=== PATIENT | male | born 1965 | race African-American/Black ===

== ENCOUNTER 2023-06-04 12:31 | Emergency (ER) | payer OTHER ==
[~2023-06-04] VITALS: Ht 185.4 cm; Wt 87.0 kg
[2023-06-04 12:36] VITALS: O2SAT 99
[2023-06-04 14:01] LABS: HEMATOCRIT. 27.9 % (42.0-52.0); HEMOGLOBIN. 9.4 g/dL (14.0-18.0); MEAN CORPUSCULAR HEMOGLOBIN 28.9 pg (28.0-32.0); MEAN CORPUSCULAR HGB CONC 33.7 g/dL (31.0-37.0); MEAN PLATELET VOLUME 8.7 fl (7.4-10.4); PLATELET 216 x1000/uL (130-400); RED BLOOD CELL COUNT 3.25 mill/uL (4.7-6.1); RED CELL DISTRIBUTION WIDTH 14.5 % (11.6-14.6); WHITE BLOOD COUNT 4.8 x1000/uL (4.5-11.0)
[2023-06-04 14:05] LABS: CHLORIDE 107 mEq/L (98-107); INDEX HEMOLYSI 1 (1-3); INDEX ICTERIC 1 (1-4); INDEX LIPEMIC 1 (1-3); POTASSIUM 4.3 mEq/L (3.5-5.1); SODIUM 140 mEq/L (136-145)
[2023-06-04 14:16] LABS: ALANINE AMINOTRANSFERASE 20 IU/L (13-61); ALBUMIN 3.8 g/dL (3.4-5.0); ASPARTATE AMINOTRANSFERASE 16 IU/L (15-37); BILIRUBIN TOTAL 0.5 mg/dL (0.1-1.0); CARBON DIOXIDE 28 mEq/L (21-32); CREATININE 3.3 mg/dL (0.6-1.3); GLUCOSE 168 mg/dL (70-105); PROTEIN TOTAL 7.6 g/dL (6.0-8.3); TROPONIN I HIGH SENSITIVITY 18 ng/L (<78); UREA NITROGEN BLOOD 47 mg/dL (7-21)
[2023-06-04 14:39] LABS: DIFFERENTIAL COMMENT 1
[2023-06-04 14:43] LABS: PLATELET ESTIMATE NORMAL
[2023-06-04 14:47] LABS: CLARITY URINE CLEAR (CLEAR); COLOR URINE YELLOW (YELLOW); GLUCOSE URINE TRACE (NEGATIVE); KETONES URINE NEGATIVE (NEGATIVE); LEUKOCYTE ESTERASE URINE NEGATIVE (NEGATIVE); NITRITE URINE NEGATIVE (NEGATIVE); OCCULT BLOOD URINE 1+ (NEGATIVE); PROTEIN URINE 3+ (NEGATIVE); SPECIFIC GRAVITY URINE 1.015 (1.005-1.030); UROBILINOGEN URINE 0.2 E.U./dL (0.2-1.0)
[2023-06-04 15:13] LABS: SQUAMOUS EPITHELIAL CELL URINE NONE SEEN /lpf (RARE/1+)
[2023-06-04 15:14] LABS: BACTERIA URINE TRACE; RBC URINE 0-2 /hpf (0-2); WBC URINE 0-2 /hpf (0-2)
[2023-06-04 16:33] VITALS: BP 145/98; PULSE 84; RESP 19; TEMP 98
== END 2023-06-04 16:34 | disposition home or self-care (01) ==
LOC: ER 12:31
DX: I12.9 Hypertensive chronic kidney disease with stage 1 through stage 4 chronic kidney disease, or unspecified chronic kidney disease (principal); N18.9 Chronic kidney disease, unspecified; H53.8 Other visual disturbances
CPT/HCPCS: 36415; 71045; 80053; 81003; 84484; 85025; 93005; 99285

== ENCOUNTER 2023-11-17 02:45 | Emergency (ER) | payer MEDICAID ==
[~2023-11-17] VITALS: Ht 193 cm; Wt 79.0 kg
[~2023-11-17 02:45] MED LIST: AMLO10TA80 MT; AMLO10TA80 PO; ASPI-1406 PO; DOXA-15 PO; FURO40TA5 PO; GLIP10TA10 MT; HYDR50TA39 PO; LISI-186 MT; SITA100T11 MT
[2023-11-17 03:05] VITALS: O2SAT 100
[2023-11-17] MEDS: ONDANSETRON 4MG ODT PO ONE (06:14)
[2023-11-17] MEDS: ACETAMINOPHEN 325MG TABLET PO ONE (06:14)
[2023-11-17 06:18] LABS: BASOPHILS % 1.5 % (0.0-2.0); EOSINOPHILS % 1.3 % (0.0-5.0); HEMATOCRIT. 27.4 % (42.0-52.0); HEMOGLOBIN. 9.4 g/dL (14.0-18.0); LYMPHOCYTES % 19.3 % (20.0-50.0); MEAN CORPUSCULAR HEMOGLOBIN 30.3 pg (28.0-32.0); MEAN CORPUSCULAR HGB CONC 34.3 g/dL (31.0-37.0); MEAN CORPUSCULAR VOLUME 88.3 fL (80.0-94.0); MEAN PLATELET VOLUME 8.3 fl (7.4-10.4); MONOCYTES % 7.5 % (2.0-8.0); NEUTROPHILS % 70.4 % (40.0-76.0); PLATELET 153 x1000/uL (130-400); RED CELL DISTRIBUTION WIDTH 14.7 % (11.6-14.6); WHITE BLOOD COUNT 5.9 x1000/uL (4.5-11.0)
[2023-11-17 06:39] LABS: ALANINE AMINOTRANSFERASE 14 IU/L (10-49); ALBUMIN 3.6 g/dL (3.2-4.8); ASPARTATE AMINOTRANSFERASE 15 IU/L (<34); BILIRUBIN TOTAL 0.7 mg/dL (0.1-1.0); CALCIUM 8.4 mg/dL (8.7-10.4); CARBON DIOXIDE 22 mEq/L (21-32); CHLORIDE 108 mEq/L (98-107); CREATININE 4.6 mg/dL (0.6-1.3); GLUCOSE 131 mg/dL (70-105); POTASSIUM 4.7 mEq/L (3.5-5.1); SODIUM 140 mEq/L (136-145); UREA NITROGEN BLOOD 62 mg/dL (9-23)
[2023-11-17 07:56] LABS: CLARITY URINE CLEAR (CLEAR); COLOR URINE YELLOW (YELLOW); GLUCOSE URINE NEGATIVE (NEGATIVE); KETONES URINE NEGATIVE (NEGATIVE); LEUKOCYTE ESTERASE URINE NEGATIVE (NEGATIVE); NITRITE URINE NEGATIVE (NEGATIVE); OCCULT BLOOD URINE 2+ (NEGATIVE); PROTEIN URINE 3+ (NEGATIVE); SPECIFIC GRAVITY URINE 1.014 (1.005-1.030); UROBILINOGEN URINE 0.2 E.U./dL (0.2-1.0)
[2023-11-17 08:15] LABS: COARSE GRANULAR CASTS URINE 0-5 /lpf; WAXY CASTS URINE 0-5 /lpf
[2023-11-17 08:16] LABS: RBC URINE 0-2 /hpf (0-2); WBC URINE 0-2 /hpf (0-2)
[2023-11-17 08:17] LABS: BACTERIA URINE TRACE
[2023-11-17 08:18] LABS: HYALINE CASTS URINE 0-5 /lpf
[2023-11-17 08:19] LABS: SQUAMOUS EPITHELIAL CELL URINE NONE SEEN /lpf (RARE/1+)
[2023-11-17 09:37] VITALS: BP 150/73; PULSE 82; RESP 18; TEMP 98.5
== END 2023-11-17 09:39 | disposition home or self-care (01) ==
LOC: ER 02:59
DX: R11.2 Nausea with vomiting, unspecified (principal); R10.9 Unspecified abdominal pain; F41.9 Anxiety disorder, unspecified; I10 Essential (primary) hypertension
CPT/HCPCS: 99284; 74176; 80053; 81003; 85025; 36415; Q0162

== ENCOUNTER 2024-02-11 11:53 | Emergency (ER) | payer MEDICAID, OTHER ==
[2024-02-11] VITALS (9 sets, daily range): BP systolic 176–201; BP diastolic 86–93; PULSE 72–76; RESP 12–19; O2SAT 96
[~2024-02-11] VITALS: Ht 188 cm; Wt 81.6 kg
[2024-02-11 12:48] LABS: BASOPHILS % 3.5 % (0.0-2.0); EOSINOPHILS % 2.4 % (0.0-5.0); HEMOGLOBIN. 12.8 g/dL (14.0-18.0); LYMPHOCYTES % 13.2 % (20.0-50.0); MEAN CORPUSCULAR HEMOGLOBIN 32.3 pg (28.0-32.0); MEAN CORPUSCULAR HGB CONC 34.7 g/dL (31.0-37.0); MEAN PLATELET VOLUME 8.3 fl (7.4-10.4); MONOCYTES % 11.4 % (2.0-8.0); NEUTROPHILS % 69.5 % (40.0-76.0); PLATELET 297 x1000/uL (130-400); RED BLOOD CELL COUNT 3.97 mill/uL (4.7-6.1); RED CELL DISTRIBUTION WIDTH 15.9 % (11.6-14.6); WHITE BLOOD COUNT 4.8 x1000/uL (4.5-11.0)
[2024-02-11 12:57] LABS: CHLORIDE 101 mEq/L (98-107); POTASSIUM 5.3 mEq/L (3.5-5.1); SODIUM 135 mEq/L (136-145)
[2024-02-11 12:58] LABS: CARBON DIOXIDE 24 mEq/L (21-32)
[2024-02-11 12:59] LABS: CALCIUM 8.9 mg/dL (8.7-10.4)
[2024-02-11 13:03] LABS: GLUCOSE 211 mg/dL (70-105)
[2024-02-11 13:04] LABS: UREA NITROGEN BLOOD 49 mg/dL (9-23)
[2024-02-11 13:05] LABS: ALANINE AMINOTRANSFERASE 58 IU/L (10-49); ASPARTATE AMINOTRANSFERASE 32 IU/L (<34)
[2024-02-11 13:06] LABS: ALBUMIN 4.1 g/dL (3.2-4.8); BILIRUBIN TOTAL 0.5 mg/dL (0.1-1.0)
[2024-02-11 13:08] LABS: PARTIAL THROMBOPLASTIN TIME 28.2 sec (23.4-31.0); PROTHROMBIN TIME 11.1 sec (9.6-11.0)
[2024-02-11 13:35] LABS: CREATININE 5.2 mg/dL (0.6-1.3)
[2024-02-11] MEDS ORDERED: LIDOCAINE HCL 1% 10 MG/ML 10ML VIAL ONE (14:19)
[2024-02-11] MEDS ORDERED: CEFAZOLIN 1000MG PREMIX 50 ML IV NR (15:00)
[2024-02-11] MEDS ORDERED: CALCIUM GLUCONATE 1,000 MG in DEXT 5% WATER 100 ML IV ONE (15:30)
[2024-02-11] MEDS ORDERED: INSULIN REGULAR (HUMULIN R) 1000UNITS/10ML VIAL IV ONE (15:30)
[2024-02-11] MEDS: CALCIUM GLUCONATE 1GM PREMIX 50 ML IV NR (15:56)
[2024-02-11] MEDS: DEXTROSE 50% WATER 50ML SYRINGE IV ONE (16:32)
[2024-02-11] MEDS: INSULIN REGULAR (HUMULIN R) 1000UNITS/10ML VIAL IV NR (16:33)
== END 2024-02-11 19:00 | disposition home or self-care (01) ==
LOC: ER 11:53
DX: T82.41XA Breakdown (mechanical) of vascular dialysis catheter, initial encounter (principal); E87.5 Hyperkalemia; F41.9 Anxiety disorder, unspecified; I10 Essential (primary) hypertension; Y92.89 Other specified places as the place of occurrence of the external cause
CPT/HCPCS: 80053; 82962; 85025; 85610; 85730; 86850; 86900; 86901; 36415; 77001; 71045; 96365; 96375; 99285; J0610; J0690; J1642; J1815; J3490; Z7610 ×3; C1750; C1769; J7060

== ENCOUNTER 2024-04-10 18:09 | Inpatient (IN) | payer OTHER ==
[~2024-04-10] VITALS: Ht 188 cm; Wt 75.4 kg
[~2024-04-10 18:09] MED LIST changes: -AMLO10TA80 MT; +COR12 PO; -LISI-186 MT; +LOSA50TA41 PO; +SEVE800T8 PO
[2024-04-10] MEDS: HYDRALAZINE 20MG/ML VIAL IV ONE (18:23)
[2024-04-10] MEDS: ASPIRIN 81MG TABLET PO ONE (18:23)
[2024-04-10] MEDS: NITROGLYCERIN 0.4MG TABLET SL SL PRN (18:23)
[2024-04-10] MEDS: ACETAMINOPHEN 325MG TABLET PO ONE (18:57)
[2024-04-10] MEDS: CLONIDINE 0.1MG TABLET PO NR (19:43)
[2024-04-10] MEDS ORDERED: CLONIDINE 0.2MG TABLET PO ONE (19:45)
[2024-04-10 19:54] LABS: HEMATOCRIT. 37.3 % (42.0-52.0); HEMOGLOBIN. 12.1 g/dL (14.0-18.0); MEAN CORPUSCULAR HEMOGLOBIN 29.6 pg (28.0-32.0); MEAN CORPUSCULAR HGB CONC 32.5 g/dL (31.0-37.0); MEAN CORPUSCULAR VOLUME 91.3 fL (80.0-94.0); MEAN PLATELET VOLUME 8.5 fl (7.4-10.4); PLATELET 182 x1000/uL (130-400); RED BLOOD CELL COUNT 4.08 mill/uL (4.7-6.1); RED CELL DISTRIBUTION WIDTH 14.8 % (11.6-14.6); WHITE BLOOD COUNT 4.2 x1000/uL (4.5-11.0)
[2024-04-10 19:59] LABS: CHLORIDE 103 mEq/L (98-107); SODIUM 134 mEq/L (136-145)
[2024-04-10 20:00] LABS: CARBON DIOXIDE 28 mEq/L (21-32)
[2024-04-10 20:01] LABS: CALCIUM 9.2 mg/dL (8.7-10.4)
[2024-04-10 20:06] LABS: GLUCOSE 138 mg/dL (70-105); TROPONIN I HIGH SENSITIVITY 28 ng/L (3.0-53); UREA NITROGEN BLOOD 19 mg/dL (9-23)
[2024-04-10 20:07] LABS: CREATININE 3.6 mg/dL (0.6-1.3)
[2024-04-10 20:27] LABS: DIFFERENTIAL COMMENT 1
[2024-04-10 20:31] LABS: PARTIAL THROMBOPLASTIN TIME 29.1 sec (23.4-31.0); PROTHROMBIN TIME 11.5 sec (9.6-11.0)
[2024-04-10 20:57] LABS: TROPONIN I HIGH SENSITIVITY 28 ng/L (3.0-53)
[2024-04-10 21:35] LABS: PLATELET ESTIMATE NORMAL
[2024-04-10 21:36] LABS: OVALOCYTES 1+
[2024-04-10 21:37] LABS: ANISOCYTOSIS 1+
[2024-04-10] MEDS ORDERED: IPRATROPIUM/ALBUTEROL 0.5-3(2.5)MG/3ML NEB HHN PRN (22:00)
[2024-04-10] MEDS ORDERED: HYDROCODONE/ACETAMINOPHEN 5/325MG TABLET PO PRN (22:00)
[2024-04-10] MEDS ORDERED: MAGNESIUM/ALUMINUM HYDROXIDE/SIMETHICONE 30ML UDC PO PRN (22:00)
[2024-04-10] MEDS ORDERED: NA PHOS,M-B/NA PHOS,DI-BA ENEMA 118ML PR PRN (22:00)
[2024-04-10] MEDS ORDERED: ONDANSETRON HCL 4MG/2ML INJ IV PRN (22:00)
[2024-04-10] MEDS ORDERED: CLONIDINE 0.1MG TABLET PO PRN (22:00)
[2024-04-10] MEDS ORDERED: GUAIFENESIN 200MG/10ML SUGAR FREE UDC PO PRN (22:00)
[2024-04-10] MEDS ORDERED: DOCUSATE SODIUM 100MG CAPSULE PO PRN (22:00)
[2024-04-10] MEDS ORDERED: ACETAMINOPHEN 325MG TABLET PO PRN (22:00)
[2024-04-10] MEDS: HYDRALAZINE HCL 50MG TABLET PO SCH (23:05)
[2024-04-10] MEDS: LOSARTAN 50 MG TABLET PO SCH (23:05)
[2024-04-10] MEDS: SEVELAMER CARBONATE 800 MG TABLET PO SCH (23:06)
[2024-04-11] MEDS ORDERED: DEXTROSE 50% WATER 50ML SYRINGE IV PRN
[2024-04-11 02:52] LABS: TROPONIN I HIGH SENSITIVITY 27 ng/L (3.0-53)
[2024-04-11] MEDS: HYDRALAZINE 20MG/ML VIAL IV PRN (03:02)
[2024-04-11] MEDS: CARVEDILOL 12.5MG TABLET PO SCH (03:03)
[2024-04-11 03:50] VITALS: BP 175/81; PULSE 60; RESP 19; TEMP 36.4736
[2024-04-11] MEDS: DOXAZOSIN MESYLATE 4MG TABLET PO SCH (03:55)
[2024-04-11] MEDS: BLOOD SUGAR DIAGNOSTIC STRIP TEST SCH (06:48)
[2024-04-11 08:00] VITALS: BP 153/75; PULSE 56; RESP 20; TEMP 37.05852; O2SAT 97
[2024-04-11] MEDS: INSULIN LISPRO 100 UNITS/ML SUBCUT SCH (08:10)
[2024-04-11] MEDS ORDERED: ENOXAPARIN 30MG/0.3ML SYR SUBCUT SCH (09:00)
[2024-04-11] MEDS ORDERED: CARVEDILOL 12.5MG TABLET PO SCH (09:00)
[2024-04-11] MEDS: AMLODIPINE 10MG TABLET PO SCH (09:17)
[2024-04-11] MEDS: ASPIRIN 81MG TABLET PO SCH (09:17)
[2024-04-11 11:43] LABS: HEMATOCRIT. 37.9 % (42.0-52.0); HEMOGLOBIN. 12.4 g/dL (14.0-18.0); MEAN CORPUSCULAR HEMOGLOBIN 29.8 pg (28.0-32.0); MEAN CORPUSCULAR HGB CONC 32.7 g/dL (31.0-37.0); MEAN CORPUSCULAR VOLUME 91.1 fL (80.0-94.0); MEAN PLATELET VOLUME 8.9 fl (7.4-10.4); PLATELET 180 x1000/uL (130-400); RED BLOOD CELL COUNT 4.16 mill/uL (4.7-6.1); RED CELL DISTRIBUTION WIDTH 14.8 % (11.6-14.6)
[2024-04-11 11:44] LABS: DIFFERENTIAL COMMENT 1
[2024-04-11 11:52] LABS: CHLORIDE 102 mEq/L (98-107); POTASSIUM 4.6 mEq/L (3.5-5.1); SODIUM 134 mEq/L (136-145)
[2024-04-11 11:53] LABS: CALCIUM 9.4 mg/dL (8.7-10.4); CARBON DIOXIDE 26 mEq/L (21-32)
[2024-04-11 11:58] LABS: CREATININE 4.5 mg/dL (0.6-1.3); GLUCOSE 102 mg/dL (70-105); UREA NITROGEN BLOOD 24 mg/dL (9-23)
[2024-04-11 12:00] VITALS: BP 176/87; PULSE 59; RESP 22; TEMP 37.05852; O2SAT 97
[2024-04-11 12:00] LABS: TROPONIN I HIGH SENSITIVITY 26 ng/L (3.0-53)
[2024-04-11 12:06] LABS: THYROID STIMULATING HORMONE 1.91 uIU/mL (0.55-4.78)
[2024-04-11 12:16] LABS: HEPATITIS B SURFACE ANTIGEN NEGATIVE (Negative)
[2024-04-11 12:37] LABS: HEPATITIS C AB NON REACTIVE (Neg) (Negative)
[2024-04-11] MEDS: ISOSORBIDE MONONITRATE 30MG TABLET SR 24HR PO SCH (13:18)
[2024-04-11 13:27] LABS: PLATELET ESTIMATE NORMAL
[2024-04-11 16:00] VITALS: BP 115/89; PULSE 67; RESP 20; TEMP 36.89184; O2SAT 96
[2024-04-11 20:00] VITALS: BP 96/60; PULSE 66; RESP 18; TEMP 36.28068; O2SAT 98
[2024-04-11] MEDS ORDERED: DOXAZOSIN MESYLATE 4MG TABLET PO SCH (21:00)
[2024-04-11] MEDS: FAMOTIDINE 20MG TABLET PO SCH (21:09)
[2024-04-11 21:20] VITALS: BP 157/74; PULSE 66
[2024-04-12] VITALS: BP 127/69; PULSE 67; RESP 18; TEMP 36.61404; O2SAT 99
[2024-04-12] MEDS: ACETAMINOPHEN 325MG TABLET PO PRN (00:35)
[2024-04-12 04:00] VITALS: BP 115/73; PULSE 67; RESP 18; TEMP 36.61404; O2SAT 99
[2024-04-12 08:00] VITALS: BP 194/68; PULSE 69; RESP 19; TEMP 37.00296; O2SAT 98
[2024-04-12 10:13] LABS: BASOPHILS % 0.6 % (0.0-2.0); EOSINOPHILS % 1.2 % (0.0-5.0); HEMATOCRIT. 38.6 % (42.0-52.0); HEMOGLOBIN. 12.5 g/dL (14.0-18.0); LYMPHOCYTES % 13.2 % (20.0-50.0); MEAN CORPUSCULAR HEMOGLOBIN 29.5 pg (28.0-32.0); MEAN CORPUSCULAR HGB CONC 32.3 g/dL (31.0-37.0); MEAN CORPUSCULAR VOLUME 91.2 fL (80.0-94.0); MEAN PLATELET VOLUME 9.1 fl (7.4-10.4); PLATELET 184 x1000/uL (130-400); RED BLOOD CELL COUNT 4.23 mill/uL (4.7-6.1); WHITE BLOOD COUNT 4.3 x1000/uL (4.5-11.0)
[2024-04-12 10:27] LABS: CHLORIDE 100 mEq/L (98-107); POTASSIUM 4.4 mEq/L (3.5-5.1); POTASSIUM 4.5 mEq/L (3.5-5.1); SODIUM 132 mEq/L (136-145)
[2024-04-12 10:28] LABS: CARBON DIOXIDE 22 mEq/L (21-32)
[2024-04-12 10:29] LABS: CALCIUM 9.3 mg/dL (8.7-10.4)
[2024-04-12 10:33] LABS: TROPONIN I HIGH SENSITIVITY 22 ng/L (3.0-53)
[2024-04-12 10:36] LABS: CREATININE 6.5 mg/dL (0.6-1.3)
[2024-04-12 11:42] VITALS: BP 165/74; PULSE 65; RESP 18; TEMP 36.83628; O2SAT 97
[2024-04-12] MEDS ORDERED: NALOXONE HCL 0.4MG/ML VIAL IV PRN (11:45)
[2024-04-12] MEDS ORDERED: ENOXAPARIN 30MG/0.3ML SYR SUBCUT SCH (12:00)
[2024-04-12] MEDS ORDERED: SEVELAMER CARBONATE 800 MG TABLET PO SCH (13:10)
[2024-04-12 15:34] VITALS: BP 149/65; PULSE 67; RESP 18; TEMP 36.6696; TEMP 36.66960; O2SAT 96
[2024-04-12 16:06] VITALS: BP 165/74; PULSE 65; TEMP 98.4; O2SAT 97
[2024-04-13] MEDS ORDERED: FAMOTIDINE 20MG TABLET PO SCH (09:00)
== END 2024-04-12 18:15 | disposition home health service (06) | DRG 199 ==
LOC: ER 18:09 → EDBEDREQ 21:15 → 5WST 22:22 → 7WST 04-11 03:50
PROVIDERS: ADMIT Internal Medicine; ATTEND Internal Medicine
DX: I16.1 Hypertensive emergency (principal); N18.6 End stage renal disease; E11.22 Type 2 diabetes mellitus with diabetic chronic kidney disease; E87.1 Hypo-osmolality and hyponatremia; D63.1 Anemia in chronic kidney disease; D72.821 Monocytosis (symptomatic); I50.32 Chronic diastolic (congestive) heart failure; I13.2 Hypertensive heart and chronic kidney disease with heart failure and with stage 5 chronic kidney disease, or end stage renal disease; T50.995A Adverse effect of other drugs, medicaments and biological substances, initial encounter; F41.9 Anxiety disorder, unspecified; H54.8 Legal blindness, as defined in USA; E11.65 Type 2 diabetes mellitus with hyperglycemia; R32 Unspecified urinary incontinence; Z79.82 Long term (current) use of aspirin; Z79.84 Long term (current) use of oral hypoglycemic drugs; Z79.899 Other long term (current) drug therapy; Z91.148 Patient's other noncompliance with medication regimen for other reason; Z91.199 Patient's noncompliance with other medical treatment and regimen due to unspecified reason; Z99.2 Dependence on renal dialysis; Y92.89 Other specified places as the place of occurrence of the external cause
CPT/HCPCS: 36415; 71045; 80048; 80051; 82962; 83036; 83880; 84443; 84484; 85025; 86705; 87340; 93005; 99291; J0360; J1815; J2405

== ENCOUNTER 2024-05-06 16:42 | Emergency (ER) | payer OTHER ==
[~2024-05-06] VITALS: Ht 177.8 cm; Wt 66.0 kg
[2024-05-06 16:44] VITALS: O2SAT 97
[2024-05-06] MEDS: MECLIZINE 25MG TABLET PO ONE (17:34)
[2024-05-06] MEDS: SODIUM CHLORIDE 0.9% 500 ML IV ONE (17:34)
[2024-05-06 17:36] LABS: BASOPHILS % 2.7 % (0.0-2.0); EOSINOPHILS % 3.8 % (0.0-5.0); HEMATOCRIT. 38.6 % (42.0-52.0); HEMOGLOBIN. 12.6 g/dL (14.0-18.0); LYMPHOCYTES % 20.4 % (20.0-50.0); MEAN CORPUSCULAR HEMOGLOBIN 29.2 pg (28.0-32.0); MEAN CORPUSCULAR HGB CONC 32.6 g/dL (31.0-37.0); MEAN CORPUSCULAR VOLUME 89.4 fL (80.0-94.0); MEAN PLATELET VOLUME 8.1 fl (7.4-10.4); MONOCYTES % 11.4 % (2.0-8.0); NEUTROPHILS % 61.7 % (40.0-76.0); PLATELET 196 x1000/uL (130-400); RED BLOOD CELL COUNT 4.32 mill/uL (4.7-6.1); RED CELL DISTRIBUTION WIDTH 14.7 % (11.6-14.6); WHITE BLOOD COUNT 4.5 x1000/uL (4.5-11.0)
[2024-05-06 17:37] LABS: CHLORIDE 98 mEq/L (98-107); POTASSIUM 4.7 mEq/L (3.5-5.1); SODIUM 133 mEq/L (136-145)
[2024-05-06 17:38] LABS: CALCIUM 9.2 mg/dL (8.7-10.4); CARBON DIOXIDE 27 mEq/L (21-32)
[2024-05-06 17:43] LABS: GLUCOSE 115 mg/dL (70-105); TROPONIN I HIGH SENSITIVITY 16 ng/L (3.0-53); UREA NITROGEN BLOOD 37 mg/dL (9-23)
[2024-05-06 17:44] LABS: ALANINE AMINOTRANSFERASE 19 IU/L (10-49)
[2024-05-06 17:45] LABS: ALBUMIN 4.5 g/dL (3.2-4.8); ASPARTATE AMINOTRANSFERASE 21 IU/L (<34); BILIRUBIN TOTAL 0.4 mg/dL (0.1-1.0); PROTEIN TOTAL 7.9 g/dL (6.0-8.3)
[2024-05-06 21:01] LABS: TROPONIN I HIGH SENSITIVITY 16 ng/L (3.0-53)
[2024-05-06 21:37] VITALS: BP 174/80; PULSE 72; RESP 18; TEMP 36.83628; O2SAT 97
== END 2024-05-06 22:14 | disposition home or self-care (01) ==
LOC: ER 16:42
DX: R53.1 Weakness (principal); I12.0 Hypertensive chronic kidney disease with stage 5 chronic kidney disease or end stage renal disease; E11.22 Type 2 diabetes mellitus with diabetic chronic kidney disease; N18.6 End stage renal disease; H40.9 Unspecified glaucoma; Z99.2 Dependence on renal dialysis; Z79.899 Other long term (current) drug therapy
CPT/HCPCS: 99285; 96360; 96361; 71045; 80053; 85025; 84484; 36415; J8597; J7030

== ENCOUNTER 2024-06-28 18:38 | Inpatient (IN) | payer MEDICARE, OTHER ==
[~2024-06-28] VITALS: Ht 370.8 cm; Wt 90.3 kg
[2024-06-28 20:48] LABS: BASOPHILS % 0.4 % (0.0-2.0); EOSINOPHILS % 1.9 % (0.0-5.0); HEMATOCRIT. 29.3 % (42.0-52.0); HEMOGLOBIN. 9.8 g/dL (14.0-18.0); MEAN CORPUSCULAR HEMOGLOBIN 30.8 pg (28.0-32.0); MEAN CORPUSCULAR HGB CONC 33.5 g/dL (31.0-37.0); MEAN CORPUSCULAR VOLUME 91.9 fL (80.0-94.0); MEAN PLATELET VOLUME 8.1 fl (7.4-10.4); MONOCYTES % 10.8 % (2.0-8.0); NEUTROPHILS % 68.9 % (40.0-76.0); PLATELET 223 x1000/uL (130-400); RED BLOOD CELL COUNT 3.19 mill/uL (4.7-6.1); RED CELL DISTRIBUTION WIDTH 15.8 % (11.6-14.6); WHITE BLOOD COUNT 6.5 x1000/uL (4.5-11.0)
[2024-06-28 20:55] LABS: CARBON DIOXIDE 24 mEq/L (21-32); CHLORIDE 103 mEq/L (98-107); POTASSIUM 3.8 mEq/L (3.5-5.1); SODIUM 136 mEq/L (136-145)
[2024-06-28 21:01] LABS: GLUCOSE 143 mg/dL (70-105); TROPONIN I HIGH SENSITIVITY 33 ng/L (3.0-53); UREA NITROGEN BLOOD 43 mg/dL (9-23)
[2024-06-28 21:15] LABS: CREATININE 6.2 mg/dL (0.6-1.3)
[2024-06-28] MEDS ORDERED: MECLIZINE 25MG TABLET PO ONE (21:30)
[2024-06-29] VITALS (11 sets, daily range): BP systolic 109–166; BP diastolic 54–99; PULSE 67–99; RESP 16–24; TEMP 36.44736–36.9474; O2SAT 96–99
[2024-06-29] MEDS: MECLIZINE 25MG TABLET PO NR (03:15)
[2024-06-29] MEDS ORDERED: CARVEDILOL 12.5MG TABLET PO ONE (07:30)
[2024-06-29] MEDS ORDERED: AMLODIPINE 10MG TABLET PO ONE (07:30)
[2024-06-29] MEDS ORDERED: LOSARTAN 50 MG TABLET PO ONE (07:30)
[2024-06-29] MEDS: HYDRALAZINE HCL 50MG TABLET PO ONE (07:30)
[2024-06-29] MEDS ORDERED: FUROSEMIDE 40MG TABLET PO ONE (07:30)
[2024-06-29] MEDS: HYDRALAZINE HCL 25MG TABLET PO SCH (09:36)
[2024-06-29] MEDS: LOSARTAN 50 MG TABLET PO SCH (09:36)
[2024-06-29] MEDS: AMLODIPINE 5MG TABLET PO SCH (09:37)
[2024-06-29] MEDS: CARVEDILOL 6.25 MG TABLET PO NR (09:41)
[2024-06-29] MEDS: FUROSEMIDE 40MG TABLET PO NR (09:41)
[2024-06-29] MEDS ORDERED: ONDANSETRON HCL 4MG/2ML INJ IV PRN (10:00)
[2024-06-29] MEDS ORDERED: IPRATROPIUM/ALBUTEROL 0.5-3(2.5)MG/3ML NEB HHN PRN (10:00)
[2024-06-29] MEDS ORDERED: HYDROCODONE/ACETAMINOPHEN 5/325MG TABLET PO PRN (10:00)
[2024-06-29] MEDS ORDERED: ACETAMINOPHEN 325MG TABLET PO PRN (10:00)
[2024-06-29] MEDS ORDERED: EPOETIN ALFA 2,000 UNIT/ML VIAL SUBCUT NR (21:00)
== END 2024-06-29 20:15 | disposition home or self-care (01) | DRG 304 ==
LOC: ER 18:38 → 5WST 06-29 07:19 → EDBEDREQTM 06-29 07:45 → EDBEDREQ 06-29 07:45 → 7WST 06-29 18:12
PROVIDERS: ADMIT Internal Medicine; ATTEND Internal Medicine
PROC: 5A1D70Z Performance of Urinary Filtration, Intermittent, Less than 6 Hours Per Day (ICD-10-PCS; principal; 2024-06-29)
DX: I16.0 Hypertensive urgency (principal); N18.6 End stage renal disease; I12.0 Hypertensive chronic kidney disease with stage 5 chronic kidney disease or end stage renal disease; H54.8 Legal blindness, as defined in USA; H35.30 Unspecified macular degeneration; E11.22 Type 2 diabetes mellitus with diabetic chronic kidney disease; Z99.2 Dependence on renal dialysis; Z82.49 Family history of ischemic heart disease and other diseases of the circulatory system
CPT/HCPCS: 36415; 71045; 80048; 83880; 84484; 85025; 90935; 93005; 99285; J0885

== ENCOUNTER 2024-07-07 20:16 | Emergency (ER) | payer MEDICARE, MEDICAID ==
[~2024-07-07] VITALS: Ht 185.4 cm; Wt 87.0 kg
[~2024-07-07 20:16] MED LIST changes: -GLIP10TA10 MT; +GLIP10TA17 MT
[2024-07-07 20:19] VITALS: O2SAT 98
[2024-07-07 21:00] VITALS: TEMP 36.61404
[2024-07-07 21:21] LABS: BASOPHILS % 1.2 % (0.0-2.0); EOSINOPHILS % 2.3 % (0.0-5.0); HEMATOCRIT. 31.4 % (42.0-52.0); HEMOGLOBIN. 10.5 g/dL (14.0-18.0); MEAN CORPUSCULAR HGB CONC 33.6 g/dL (31.0-37.0); MEAN CORPUSCULAR VOLUME 92.3 fL (80.0-94.0); MEAN PLATELET VOLUME 8.3 fl (7.4-10.4); MONOCYTES % 10.7 % (2.0-8.0); NEUTROPHILS % 73.8 % (40.0-76.0); PLATELET 196 x1000/uL (130-400); RED CELL DISTRIBUTION WIDTH 15.3 % (11.6-14.6); WHITE BLOOD COUNT 5.8 x1000/uL (4.5-11.0)
[2024-07-07 21:28] LABS: POTASSIUM 4.4 mEq/L (3.5-5.1)
[2024-07-07 21:29] LABS: CALCIUM 9.2 mg/dL (8.7-10.4)
[2024-07-07 21:35] LABS: CREATININE 5.8 mg/dL (0.6-1.3)
[2024-07-07] MEDS: HYDROCODONE/ACETAMINOPHEN 5/325MG TABLET PO ONE (22:10)
[2024-07-07] MEDS: GABAPENTIN 100MG CAPSULE PO ONE (22:11)
[2024-07-07] MEDS ORDERED: TRAM50TA3 MT (22:42)
[2024-07-07] MEDS ORDERED: GABA-529 MT (22:42)
[2024-07-07 23:34] VITALS: BP 170/79; PULSE 65; RESP 12; O2SAT 100
== END 2024-07-07 23:55 | disposition home or self-care (01) ==
LOC: ER 20:16
DX: E11.40 Type 2 diabetes mellitus with diabetic neuropathy, unspecified (principal); E11.22 Type 2 diabetes mellitus with diabetic chronic kidney disease; I12.0 Hypertensive chronic kidney disease with stage 5 chronic kidney disease or end stage renal disease; N18.6 End stage renal disease; Z99.2 Dependence on renal dialysis; Z79.899 Other long term (current) drug therapy
CPT/HCPCS: 36415; 80048; 85025; 99283

== ENCOUNTER 2024-07-17 13:41 | Inpatient (IN) | payer MEDICARE, MEDICAID ==
[~2024-07-17] VITALS: Ht 188 cm; Wt 80.7 kg
[~2024-07-17 13:41] MED LIST changes: +GABA-529 MT; +TRAM50TA3 MT
[2024-07-17 14:39] LABS: EOSINOPHILS % 2.6 % (0.0-5.0); HEMATOCRIT. 30.6 % (42.0-52.0); LYMPHOCYTES % 19.4 % (20.0-50.0); MEAN CORPUSCULAR HEMOGLOBIN 30.7 pg (28.0-32.0); MEAN CORPUSCULAR HGB CONC 32.8 g/dL (31.0-37.0); MEAN CORPUSCULAR VOLUME 93.7 fL (80.0-94.0); MEAN PLATELET VOLUME 8.5 fl (7.4-10.4); MONOCYTES % 9.4 % (2.0-8.0); NEUTROPHILS % 66.6 % (40.0-76.0); PLATELET 207 x1000/uL (130-400); RED BLOOD CELL COUNT 3.27 mill/uL (4.7-6.1); RED CELL DISTRIBUTION WIDTH 15.3 % (11.6-14.6); WHITE BLOOD COUNT 4.7 x1000/uL (4.5-11.0)
[2024-07-17 14:45] LABS: CHLORIDE 106 mEq/L (98-107); POTASSIUM 5.3 mEq/L (3.5-5.1); SODIUM 139 mEq/L (136-145)
[2024-07-17 14:46] LABS: CALCIUM 9.4 mg/dL (8.7-10.4); CARBON DIOXIDE 25 mEq/L (21-32)
[2024-07-17 14:51] LABS: GLUCOSE 102 mg/dL (70-105); UREA NITROGEN BLOOD 55 mg/dL (9-23)
[2024-07-17 14:52] LABS: TROPONIN I HIGH SENSITIVITY 11 ng/L (3.0-53)
[2024-07-17 15:05] LABS: CREATININE 8.7 mg/dL (0.6-1.3)
[2024-07-17] MEDS: ALBUTEROL (0.083%) 2.5MG/3ML NEB HHN SCH (15:33)
[2024-07-17] MEDS: DEXTROSE 50% WATER 50ML SYRINGE IV NR (15:55)
[2024-07-17] MEDS: INSULIN REGULAR (HUMULIN R) 1000UNITS/10ML VIAL IV NR (15:55)
[2024-07-17] MEDS: CALCIUM GLUCONATE 1GM PREMIX 50 ML IV NR (15:55)
[2024-07-17 16:05] VITALS: PULSE 64; RESP 16; O2SAT 98
[2024-07-17] MEDS ORDERED: LORAZEPAM 0.5MG TABLET PO PRN (16:15)
[2024-07-17] MEDS ORDERED: DOCUSATE SODIUM 100MG CAPSULE PO PRN (16:15)
[2024-07-17] MEDS ORDERED: NALOXONE HCL 0.4MG/ML VIAL IV PRN (16:15)
[2024-07-17] MEDS ORDERED: ACETAMINOPHEN 650MG SUPP PR PRN (16:15)
[2024-07-17] MEDS ORDERED: HYDROCODONE/ACETAMINOPHEN 5/325MG TABLET PO PRN (16:15)
[2024-07-17] MEDS ORDERED: ACETAMINOPHEN 325MG TABLET PO PRN (16:15)
[2024-07-17] MEDS ORDERED: GUAIFENESIN 200MG/10ML SUGAR FREE UDC PO PRN (16:15)
[2024-07-17] MEDS ORDERED: ONDANSETRON HCL 4MG/2ML INJ IV PRN (16:15)
[2024-07-17] MEDS ORDERED: CLONIDINE 0.1MG TABLET PO PRN (16:15)
[2024-07-17] MEDS ORDERED: IPRATROPIUM/ALBUTEROL 0.5-3(2.5)MG/3ML NEB NEB PRN (16:15)
[2024-07-17 16:35] VITALS: PULSE 66; RESP 14; O2SAT 99
[2024-07-17 17:10] VITALS: PULSE 66; RESP 14; O2SAT 99
[2024-07-17 20:20] VITALS: BP 131/62; PULSE 68; RESP 18; TEMP 36.5848
[2024-07-17 21:57] VITALS: BP 131/62; PULSE 68; RESP 18; TEMP 36.55848; O2SAT 99
[2024-07-18] VITALS (14 sets, daily range): BP systolic 118–171; BP diastolic 54–84; PULSE 62–72; RESP 16–19; TEMP 36.44736–37.16964; O2SAT 97–99
[2024-07-18] MEDS ORDERED: FERR-63 PO (01:57)
[2024-07-18] MEDS ORDERED: CYAN-50 PO (01:57)
[2024-07-18] MEDS ORDERED: THIA50TA12 PO (01:57)
[2024-07-18 08:43] LABS: BASOPHILS % 1.9 % (0.0-2.0); EOSINOPHILS % 1.8 % (0.0-5.0); HEMATOCRIT. 31.7 % (42.0-52.0); HEMOGLOBIN. 10.5 g/dL (14.0-18.0); LYMPHOCYTES % 18.4 % (20.0-50.0); MEAN CORPUSCULAR HEMOGLOBIN 30.9 pg (28.0-32.0); MEAN CORPUSCULAR HGB CONC 33.1 g/dL (31.0-37.0); MEAN CORPUSCULAR VOLUME 93.2 fL (80.0-94.0); MEAN PLATELET VOLUME 8.9 fl (7.4-10.4); MONOCYTES % 9.2 % (2.0-8.0); NEUTROPHILS % 68.7 % (40.0-76.0); PLATELET 227 x1000/uL (130-400); RED CELL DISTRIBUTION WIDTH 15.3 % (11.6-14.6); WHITE BLOOD COUNT 6.5 x1000/uL (4.5-11.0)
[2024-07-18 08:51] LABS: CARBON DIOXIDE 22 mEq/L (21-32); CHLORIDE 105 mEq/L (98-107); POTASSIUM 5.7 mEq/L (3.5-5.1); SODIUM 139 mEq/L (136-145)
== END 2024-07-18 18:00 | disposition home or self-care (01) | DRG 314 ==
LOC: ER 13:50 → EDBEDREQ 15:21 → 7EST 20:25
PROVIDERS: ADMIT Internal Medicine; ATTEND Internal Medicine
PROC: 5A1D70Z Performance of Urinary Filtration, Intermittent, Less than 6 Hours Per Day (ICD-10-PCS; principal; 2024-07-18)
DX: I95.9 Hypotension, unspecified (principal); N18.6 End stage renal disease; I12.0 Hypertensive chronic kidney disease with stage 5 chronic kidney disease or end stage renal disease; E87.5 Hyperkalemia; Z20.822 Contact with and (suspected) exposure to COVID-19; E11.22 Type 2 diabetes mellitus with diabetic chronic kidney disease; D64.9 Anemia, unspecified; E11.40 Type 2 diabetes mellitus with diabetic neuropathy, unspecified; F41.9 Anxiety disorder, unspecified; Z99.2 Dependence on renal dialysis; Z79.84 Long term (current) use of oral hypoglycemic drugs; Z79.899 Other long term (current) drug therapy; Z79.82 Long term (current) use of aspirin
CPT/HCPCS: 36415; 71045; 80048; 80051; 83880; 84145; 84484; 85025; 87426; 87804; 90935; 93005; 99291; J0610; J1815

== ENCOUNTER 2025-02-23 14:21 | Emergency (ER) | payer MEDICARE, MEDICAID ==
[~2025-02-23] VITALS: Ht 188 cm; Wt 84.0 kg
[~2025-02-23 14:21] MED LIST changes: +ATOR40TA70 MT; -COR12 PO; +CYAN-50 PO; +CYM20 PO; -DOXA-15 PO; +FERR-63 PO; -GLIP10TA17 MT; +LINA5TAB PO; -LOSA50TA41 PO; +THIA50TA12 PO; +VALS320T16 PO
[2025-02-23 14:30] VITALS: O2SAT 95
[2025-02-23] MEDS ORDERED: KETOROLAC 15MG/ML VIAL IM ONE (15:30)
[2025-02-23] MEDS: KETOROLAC 15MG/ML VIAL IM NR (17:42)
[2025-02-23 17:51] VITALS: BP 137/60; PULSE 73; RESP 16; TEMP 37.1; O2SAT 99
== END 2025-02-23 18:08 | disposition home or self-care (01) ==
LOC: ER 14:21
DX: E11.621 Type 2 diabetes mellitus with foot ulcer (principal); L97.421 Non-pressure chronic ulcer of left heel and midfoot limited to breakdown of skin; L97.411 Non-pressure chronic ulcer of right heel and midfoot limited to breakdown of skin; I10 Essential (primary) hypertension; Z79.82 Long term (current) use of aspirin; Z99.3 Dependence on wheelchair; Z99.2 Dependence on renal dialysis; Z79.899 Other long term (current) drug therapy; Z79.84 Long term (current) use of oral hypoglycemic drugs
CPT/HCPCS: 99283; 96372; J1885

== ENCOUNTER 2025-06-22 15:21 | Inpatient (IN) | payer MEDICARE, MEDICAID ==
[~2025-06-22] VITALS: Ht 182.9 cm; Wt 57.6 kg
[~2025-06-22 15:21] MED LIST changes: -VALS320T16 PO
[2025-06-22 15:28] VITALS: O2SAT 99
[2025-06-22] MEDS ORDERED: CEFTRIAXONE 1GM/50ML 50 ML IV ONE (17:15)
[2025-06-22] MEDS ORDERED: VANCOMYCIN 1000MG/250ML 250 ML IV SCH (17:15)
[2025-06-22 17:25] LABS: HEMATOCRIT. 25.1 % (42.0-52.0); HEMOGLOBIN. 8.0 g/dL (14.0-18.0); MEAN PLATELET VOLUME 8.5 fl (7.4-10.4); PLATELET 445 x1000/uL (130-400); RED BLOOD CELL COUNT 2.91 mill/uL (4.7-6.1); RED CELL DISTRIBUTION WIDTH 18.3 % (11.6-14.6)
[2025-06-22] MEDS: CEFTRIAXONE 1GM/50ML 50 ML IV NR (17:31)
[2025-06-22 17:38] LABS: UREA NITROGEN BLOOD 17 mg/dL (9-23)
[2025-06-22 17:40] LABS: ASPARTATE AMINOTRANSFERASE 13 IU/L (<34); BILIRUBIN DIRECT 0.3 mg/dL (<=3.0); BILIRUBIN TOTAL 0.4 mg/dL (0.1-1.0); PROTEIN TOTAL 7.4 g/dL (6.0-8.3)
[2025-06-22 17:46] LABS: INR 1.2
[2025-06-22 17:47] LABS: CREATININE 5.0 mg/dL (0.6-1.3)
[2025-06-22 17:59] LABS: LYMPHOCYTES % MANUAL 6.0 % (20.0-50.0); MONOCYTES % MANUAL 11.0 % (2.0-8.0); NEUTROPHILS % MANUAL 83.0 % (45.0-75.0); PLATELET ESTIMATE INCREASED
[2025-06-22] MEDS: VANCOMYCIN 1G PREMIX 200 ML IV SCH (18:13)
[2025-06-22] MEDS ORDERED: IPRATROPIUM/ALBUTEROL 0.5-3(2.5)MG/3ML NEB HHN PRN (20:30)
[2025-06-22] MEDS ORDERED: DOCUSATE SODIUM 100MG CAPSULE PO PRN (20:30)
[2025-06-22] MEDS ORDERED: ACETAMINOPHEN 325MG TABLET PO PRN (20:30)
[2025-06-22] MEDS ORDERED: CLONIDINE 0.1MG TABLET PO PRN (20:30)
[2025-06-22] MEDS ORDERED: ONDANSETRON HCL 4MG/2ML INJ IV PRN (20:30)
[2025-06-22 21:10] VITALS: BP 171/75; PULSE 71; RESP 18; TEMP 37.1; O2SAT 98
[2025-06-22] MEDS ORDERED: DEXTROSE 50% WATER 50ML SYRINGE IV PRN (22:15)
[2025-06-22] MEDS: VANCOMYCIN 1G PREMIX 200 ML IV NR (23:44)
[2025-06-23] VITALS (16 sets, daily range): BP systolic 116–192; BP diastolic 62–83; PULSE 62–84; RESP 18–22; TEMP 36.4–37.16964; O2SAT 94–98
[2025-06-23] MEDS: HYDRALAZINE HCL 50MG TABLET PO SCH ×2 (06:52→19:39)
[2025-06-23] MEDS: CYANOCOBALAMIN 1000MCG TABLET PO SCH (06:52)
[2025-06-23] MEDS: SEVELAMER CARBONATE 800 MG TABLET PO SCH ×2 (06:53→09:05)
[2025-06-23] MEDS: FERROUS SULFATE 325MG TABLET PO SCH (06:53)
[2025-06-23] MEDS: GABAPENTIN 100MG CAPSULE PO SCH (06:53)
[2025-06-23] MEDS: ACETAMINOPHEN 325MG TABLET PO PRN (06:53)
[2025-06-23] MEDS: INSULIN LISPRO 100 UNITS/ML SUBCUT SCH (07:00)
[2025-06-23] MEDS ORDERED: SEVELAMER CARBONATE 800 MG TABLET PO SCH (07:30)
[2025-06-23 07:50] LABS: HEMATOCRIT. 25.5 % (42.0-52.0); HEMOGLOBIN. 7.9 g/dL (14.0-18.0); MEAN PLATELET VOLUME 8.4 fl (7.4-10.4); PLATELET 418 x1000/uL (130-400); RED BLOOD CELL COUNT 3.00 mill/uL (4.7-6.1); RED CELL DISTRIBUTION WIDTH 18.7 % (11.6-14.6)
[2025-06-23 08:01] LABS: CREATININE 3.6 mg/dL (0.6-1.3); UREA NITROGEN BLOOD 20 mg/dL (9-23)
[2025-06-23 08:04] LABS: PHOSPHORUS 2.6 mg/dL (2.5-4.9)
[2025-06-23] MEDS: BLOOD SUGAR DIAGNOSTIC STRIP TEST SCH (09:00)
[2025-06-23] MEDS: LOSARTAN 50 MG TABLET PO SCH (09:00)
[2025-06-23] MEDS: AMLODIPINE 10MG TABLET PO SCH ×2 (09:00)
[2025-06-23] MEDS: ASPIRIN 81MG TABLET PO SCH (09:04)
[2025-06-23] MEDS: PANTOPRAZOLE SODIUM 40 MG/VIAL IV SCH (09:05)
[2025-06-23] MEDS: CALCIUM ACETATE 667MG CAPSULE PO SCH (10:01)
[2025-06-23] MEDS: CLONIDINE HCL 0.3MG/24HR PATCH TD SCH (10:04)
[2025-06-23] MEDS ORDERED: NALOXONE HCL 0.4MG/ML VIAL IV PRN (12:00)
[2025-06-23] MEDS: TRAMADOL 50MG TABLET PO PRN (12:08)
[2025-06-23] MEDS ORDERED: CEFTRIAXONE 1GM/50ML 50 ML IV SCH (17:00)
[2025-06-23 17:16] LABS: LYMPHOCYTES % MANUAL 9.0 % (20.0-50.0); MONOCYTES % MANUAL 9.0 % (2.0-8.0); NEUTROPHILS % MANUAL 82.0 % (45.0-75.0); PLATELET ESTIMATE INCREASED
[2025-06-23] MEDS: CEFTRIAXONE 1GM/50ML 50 ML IV SCH (19:16)
[2025-06-23] MEDS: DULOXETINE HCL 20MG DR CAPSULE PO SCH (21:11)
[2025-06-24] VITALS: BP 161/69; PULSE 74; RESP 18; TEMP 37.2; O2SAT 95
[2025-06-24 04:00] VITALS: BP 171/73; PULSE 74; RESP 18; TEMP 37.2; O2SAT 96
[2025-06-24 06:06] LABS: PLATELET 441 x1000/uL (130-400); RED BLOOD CELL COUNT 3.32 mill/uL (4.7-6.1); RED CELL DISTRIBUTION WIDTH 17.9 % (11.6-14.6)
[2025-06-24 06:23] LABS: UREA NITROGEN BLOOD 18 mg/dL (9-23)
[2025-06-24 06:25] LABS: PHOSPHORUS 2.5 mg/dL (2.5-4.9)
[2025-06-24 07:31] LABS: CREATININE 4.8 mg/dL (0.6-1.3)
[2025-06-24 08:00] VITALS: BP 157/71; PULSE 75; RESP 19; TEMP 36.4; O2SAT 96
[2025-06-24] MEDS ORDERED: PHENYLEPHRINE 50MG/250ML PMX 250 ML IV ONE (09:37)
[2025-06-24] MEDS ORDERED: POLYMYXIN B SULFATE 500000 UNITS/VIAL ONE (09:42)
[2025-06-24] MEDS ORDERED: LIDOCAINE HCL 1% 10 MG/ML 10ML VIAL ONE ×2 (09:43→09:56)
[2025-06-24] MEDS ORDERED: BUPIVACAINE HCL/PF 0.5% (5MG/ML) 10ML ONE (09:43)
[2025-06-24] MEDS ORDERED: BACITRACIN 14GM TUBE TOP ONE (09:43)
[2025-06-24] MEDS ORDERED: HEPARIN SODIUM 1,000 UNIT/1ML VIAL IV ONE (09:43)
[2025-06-24] MEDS ORDERED: THROMBIN (BOVINE) 5000 UNITS/VIAL TOP ONE (09:43)
[2025-06-24] MEDS ORDERED: ACETAMINOPHEN 1000MG/100ML 100 ML IV ONE (09:51)
[2025-06-24] MEDS ORDERED: DEXAMETHASONE 4MG/ML 1ML VIAL ONE (09:56)
[2025-06-24] MEDS ORDERED: ONDANSETRON HCL 4MG/2ML INJ ONE (09:56)
[2025-06-24] MEDS ORDERED: PROPOFOL 200MG/20ML VIAL IV ONE (09:56)
[2025-06-24] MEDS ORDERED: EPHEDRINE SULFATE 50MG/ML VIAL ONE (09:56)
[2025-06-24] MEDS ORDERED: PHENYLEPHRINE HCL 10MG/ML 1ML IV ONE (09:56)
[2025-06-24] MEDS ORDERED: ETOMIDATE 2MG/ML 10ML VIAL IV ONE (09:56)
[2025-06-24] MEDS ORDERED: MORPHINE SULFATE 4 MG/ML INJ (FOR IV/IM USE) IV PRN (10:30)
[2025-06-24] MEDS ORDERED: HYDROMORPHONE HCL/PF 1MG/ML INJ ONE ×2 (10:51→13:39)
[2025-06-24] MEDS ORDERED: MEPERIDINE HCL/PF 25MG/ML CPJ IV PRN (11:45)
[2025-06-24] MEDS ORDERED: HYDRALAZINE 20MG/ML VIAL IV PRN ×2 (11:45)
[2025-06-24] MEDS ORDERED: HYDROMORPHONE HCL/PF 1MG/ML INJ IV PRN (11:45)
[2025-06-24] MEDS ORDERED: LABETALOL 5MG/ML 4ML INJ IV PRN (11:45)
[2025-06-24] MEDS ORDERED: ONDANSETRON HCL 4MG/2ML INJ IV PRN (11:45)
[2025-06-24] MEDS ORDERED: PAPAVERINE HCL 30 MG/ML 2ML IV ONE (12:02)
[2025-06-24 20:00] VITALS: BP 148/59; PULSE 74; RESP 18; TEMP 36.3; O2SAT 98
[2025-06-24] MEDS: DOXAZOSIN MESYLATE 4MG TABLET PO SCH (22:32)
[2025-06-25] VITALS (8 sets, daily range): BP systolic 135–155; BP diastolic 57–94; PULSE 19–88; RESP 18; TEMP 36.5–36.7; O2SAT 96–97
[2025-06-25 16:12] LABS: HEMATOCRIT. 21.5 % (42.0-52.0); MEAN PLATELET VOLUME 8.4 fl (7.4-10.4); PLATELET 407 x1000/uL (130-400); RED BLOOD CELL COUNT 2.53 mill/uL (4.7-6.1); RED CELL DISTRIBUTION WIDTH 17.9 % (11.6-14.6)
[2025-06-25 16:18] LABS: HEMOGLOBIN. 6.8 g/dL (14.0-18.0)
[2025-06-25 17:04] LABS: EOSINOPHILS % MANUAL 1.0 % (0.0-5.0); LYMPHOCYTES % MANUAL 6.0 % (20.0-50.0); MONOCYTES % MANUAL 5.0 % (2.0-8.0); NEUTROPHILS % MANUAL 88.0 % (45.0-75.0); PLATELET ESTIMATE INCREASED
[2025-06-25] MEDS ORDERED: THROMBIN (BOVINE) 5000 UNITS/VIAL TOP ONE (19:12)
[2025-06-25] MEDS ORDERED: BUPIVACAINE HCL/PF 0.5% (5MG/ML) 10ML ONE (19:12)
[2025-06-25] MEDS ORDERED: LIDOCAINE HCL 1% 10 MG/ML 10ML VIAL ONE (19:12)
[2025-06-25] MEDS ORDERED: HEPARIN SODIUM 1,000 UNIT/1ML VIAL IV ONE (19:13)
[2025-06-25] MEDS ORDERED: BACITRACIN 14GM TUBE TOP ONE (19:13)
[2025-06-25] MEDS ORDERED: FENTANYL CITRATE/PF 50MCG/ML 2ML VIAL IV PRN (19:30)
[2025-06-25] MEDS ORDERED: ONDANSETRON HCL 4MG/2ML INJ IV PRN (19:30)
[2025-06-25] MEDS ORDERED: ALBUMIN HUMAN 12.5GM/50ML (25%) IV ONE (19:35)
[2025-06-25] MEDS ORDERED: ACETAMINOPHEN 1000MG/100ML 100 ML IV ONE (19:35)
[2025-06-25] MEDS ORDERED: ALBUMIN HUMAN 12.5G/250ML (5%) IV ONE (19:37)
[2025-06-25] MEDS ORDERED: KETAMINE HCL 50 MG/ML 10ML ONE (19:41)
[2025-06-25] MEDS ORDERED: FENTANYL CITRATE/PF 50MCG/ML 2ML VIAL ONE (19:53)
[2025-06-25] MEDS ORDERED: PROPOFOL 200MG/20ML VIAL IV ONE (19:53)
[2025-06-25] MEDS ORDERED: METOCLOPRAMIDE HCL 10MG/2ML VIAL ONE (19:58)
[2025-06-25] MEDS ORDERED: ONDANSETRON HCL 4MG/2ML INJ ONE (19:58)
[2025-06-25] MEDS ORDERED: CEFAZOLIN SODIUM 1000MG/VIAL ONE (19:58)
[2025-06-25] MEDS: PIPERACILLIN/TAZO 3.375G/50ML 50 ML IV SCH (20:21)
[2025-06-25] MEDS ORDERED: PIPERACILLIN/TAZO 3.375G/50ML 50 ML IV SCH (22:00)
[2025-06-26] VITALS: BP 99/21; PULSE 75; RESP 18; TEMP 36.9; O2SAT 97
[2025-06-26 00:05] LABS: INR 1.2
[2025-06-26 04:01] VITALS: BP 104/33; PULSE 70; RESP 18; TEMP 36.1; O2SAT 98
[2025-06-26 07:20] LABS: HEMATOCRIT. 25.3 % (42.0-52.0); HEMOGLOBIN. 8.2 g/dL (14.0-18.0); MEAN PLATELET VOLUME 8.7 fl (7.4-10.4); PLATELET 393 x1000/uL (130-400); RED BLOOD CELL COUNT 2.99 mill/uL (4.7-6.1); RED CELL DISTRIBUTION WIDTH 17.3 % (11.6-14.6)
[2025-06-26 07:34] LABS: UREA NITROGEN BLOOD 27.0 mg/dL (9-23)
[2025-06-26 07:39] LABS: CREATININE 5.6 mg/dL (0.6-1.3)
[2025-06-26 08:00] VITALS: BP 163/73; PULSE 82; RESP 20; TEMP 36.6; O2SAT 95
[2025-06-26 12:32] VITALS: BP 161/71; PULSE 78; RESP 20; TEMP 37.1; O2SAT 96
[2025-06-26 16:41] VITALS: BP 153/64; PULSE 76; RESP 18; TEMP 36.6; O2SAT 97
[2025-06-26 17:02] LABS: LYMPHOCYTES % MANUAL 7.0 % (20.0-50.0); MONOCYTES % MANUAL 11.0 % (2.0-8.0); NEUTROPHILS % MANUAL 82.0 % (45.0-75.0); PLATELET ESTIMATE NORMAL
[2025-06-26] MEDS: VANCOMYCIN 750MG/150ML (BAXTER) IV SCH ×2 (17:40→22:06)
[2025-06-26 20:00] VITALS: BP 154/66; PULSE 80; RESP 18; TEMP 36.2; O2SAT 96
[2025-06-26] MEDS: HYDRALAZINE HCL 25MG TABLET PO SCH (22:02)
[2025-06-27] VITALS: BP 141/57; PULSE 84; RESP 18; TEMP 36.5; O2SAT 95
[2025-06-27 04:00] VITALS: BP 139/53; PULSE 83; RESP 19; TEMP 36.8; O2SAT 96
[2025-06-27 04:56] LABS: UREA NITROGEN BLOOD 35 mg/dL (9-23)
[2025-06-27 04:58] LABS: PHOSPHORUS 2.9 mg/dL (2.5-4.9)
[2025-06-27 05:25] LABS: CREATININE 6.5 mg/dL (0.6-1.3)
[2025-06-27 06:04] LABS: PLATELET 386 x1000/uL (130-400); RED BLOOD CELL COUNT 2.91 mill/uL (4.7-6.1); RED CELL DISTRIBUTION WIDTH 17.3 % (11.6-14.6)
[2025-06-27 08:00] VITALS: BP 150/53; PULSE 82; RESP 20; TEMP 36.2; O2SAT 98
[2025-06-27 11:59] VITALS: BP 136/50; PULSE 73; RESP 18; TEMP 36.2; O2SAT 100
[2025-06-27] MEDS: HYDRALAZINE HCL 50MG TABLET PO SCH (12:08)
[2025-06-27 15:52] VITALS: BP 136/63; PULSE 75; RESP 18; TEMP 36.1; O2SAT 18
[2025-06-27 19:41] LABS: FOLIC ACID (FOLATE) SERUM 4.58 ng/mL (>5.38)
[2025-06-27 19:54] LABS: VITAMIN B12 SERUM > 2000 pg/mL (211-911)
[2025-06-27 20:00] VITALS: BP 152/61; PULSE 80; RESP 18; TEMP 36.7; O2SAT 97
[2025-06-28] VITALS (14 sets, daily range): BP systolic 141–164; BP diastolic 60–81; PULSE 77–86; RESP 14–20; TEMP 36.3–37.4; O2SAT 96–100
[2025-06-28 14:44] LABS: HEPATITIS A AB IGM NEGATIVE (Negative)
[2025-06-28 14:45] LABS: HEPATITIS B CORE AB IGM NEGATIVE (Negative); HEPATITIS C AB NON REACTIVE (Neg) (Negative)
[2025-06-28] MEDS: DOXAZOSIN MESYLATE 4MG TABLET PO SCH (21:36)
[2025-06-29] VITALS: BP 162/59; PULSE 79; RESP 20; TEMP 36.6; O2SAT 98
[2025-06-29 04:00] VITALS: BP 161/67; PULSE 80; RESP 20; TEMP 36.4; O2SAT 100
[2025-06-29] MEDS ORDERED: NALOXONE HCL 0.4MG/ML VIAL IV PRN (07:45)
[2025-06-29 08:34] VITALS: BP 162/70; PULSE 86; RESP 20; TEMP 37.2; O2SAT 98
[2025-06-29] MEDS: IRON SUCROSE COMPLEX 100 MG/5 ML ML IV SCH (09:26)
[2025-06-29 12:28] VITALS: BP 147/68; PULSE 78; RESP 20; TEMP 36.4; O2SAT 97
[2025-06-29 16:00] VITALS: BP 140/70; PULSE 74; RESP 20; TEMP 36.6; O2SAT 98
[2025-06-29 20:00] VITALS: BP 139/60; PULSE 80; RESP 20; TEMP 36.8; O2SAT 98
[2025-06-30] VITALS (11 sets, daily range): BP systolic 121–159; BP diastolic 51–84; PULSE 78–88; RESP 18–20; TEMP 36.114–37.2; O2SAT 88–100
[2025-06-30 06:43] LABS: HEMATOCRIT. 23.5 % (42.0-52.0); HEMOGLOBIN. 7.6 g/dL (14.0-18.0); MEAN PLATELET VOLUME 8.9 fl (7.4-10.4); PLATELET 397 x1000/uL (130-400); RED BLOOD CELL COUNT 2.76 mill/uL (4.7-6.1); RED CELL DISTRIBUTION WIDTH 17.4 % (11.6-14.6)
[2025-06-30 06:50] LABS: UREA NITROGEN BLOOD 42 mg/dL (9-23)
[2025-06-30 06:52] LABS: PHOSPHORUS 2.7 mg/dL (2.5-4.9)
[2025-06-30 07:09] LABS: CREATININE 7.8 mg/dL (0.6-1.3)
[2025-06-30 10:27] LABS: EOSINOPHILS % MANUAL 1.0 % (0.0-5.0); LYMPHOCYTES % MANUAL 9.0 % (20.0-50.0); MONOCYTES % MANUAL 4.0 % (2.0-8.0); NEUTROPHILS % MANUAL 86.0 % (45.0-75.0); PLATELET ESTIMATE NORMAL
[2025-07-01] VITALS: BP 153/54; PULSE 78; RESP 20; TEMP 36.4; O2SAT 98
[2025-07-01 01:00] VITALS: BP 152/67; PULSE 75; RESP 18; TEMP 35.4; O2SAT 94
[2025-07-01 04:00] VITALS: BP 161/67; PULSE 80; RESP 18; TEMP 37.2; O2SAT 97
[2025-07-01 08:00] VITALS: BP 155/74; PULSE 78; RESP 18; TEMP 36.4; O2SAT 96
[2025-07-01] MEDS: MINOXIDIL 2.5MG TABLET PO SCH (11:11)
[2025-07-01 20:00] VITALS: BP 139/61; PULSE 70; RESP 18; TEMP 36.9; O2SAT 98
[2025-07-01] MEDS ORDERED: DOXAZOSIN MESYLATE 4MG TABLET PO SCH (21:00)
[2025-07-02] VITALS (9 sets, daily range): BP systolic 111–154; BP diastolic 58–83; PULSE 66–73; RESP 16–18; TEMP 36.28068–37.5; O2SAT 96–100
[2025-07-02 07:20] LABS: PLATELET 402 x1000/uL (130-400); RED BLOOD CELL COUNT 2.78 mill/uL (4.7-6.1); RED CELL DISTRIBUTION WIDTH 17.4 % (11.6-14.6)
[2025-07-02 07:21] LABS: UREA NITROGEN BLOOD 48.0 mg/dL (9-23)
[2025-07-02 07:22] LABS: CREATININE 8.2 mg/dL (0.6-1.3)
[2025-07-03] VITALS: BP 110/67; PULSE 68; RESP 18; TEMP 37.3; O2SAT 96
[2025-07-03 03:24] LABS: UREA NITROGEN BLOOD 38.0 mg/dL (9-23)
[2025-07-03 03:39] LABS: CREATININE 6.7 mg/dL (0.6-1.3)
[2025-07-03 03:56] LABS: PLATELET 393 x1000/uL (130-400); RED BLOOD CELL COUNT 2.74 mill/uL (4.7-6.1); RED CELL DISTRIBUTION WIDTH 17.6 % (11.6-14.6)
[2025-07-03 04:00] VITALS: PULSE 67; RESP 18; TEMP 35.9; O2SAT 97
[2025-07-03 04:34] LABS: INR 1.2
[2025-07-03 08:00] VITALS: BP 138/58; PULSE 66; RESP 18; TEMP 36.4; O2SAT 98
[2025-07-03 12:00] VITALS: BP 98/35; PULSE 62; RESP 18; TEMP 36.6; O2SAT 96
[2025-07-03 16:00] VITALS: BP 125/62; PULSE 65; RESP 19; TEMP 36.4; O2SAT 96
[2025-07-03 20:00] VITALS: BP 118/48; PULSE 63; RESP 20; TEMP 35.8; O2SAT 95
[2025-07-04] VITALS (9 sets, daily range): BP systolic 117–126; BP diastolic 44–57; PULSE 57–63; RESP 16–20; TEMP 35.6–36.44736; O2SAT 97–99
[2025-07-04 04:16] LABS: HEMATOCRIT. 22.3 % (42.0-52.0); HEMOGLOBIN. 7.3 g/dL (14.0-18.0); MEAN PLATELET VOLUME 8.9 fl (7.4-10.4); PLATELET 384 x1000/uL (130-400); RED BLOOD CELL COUNT 2.64 mill/uL (4.7-6.1); RED CELL DISTRIBUTION WIDTH 17.6 % (11.6-14.6)
[2025-07-04 04:21] LABS: UREA NITROGEN BLOOD 47 mg/dL (9-23)
[2025-07-04 04:23] LABS: BILIRUBIN TOTAL 0.5 mg/dL (0.1-1.0); PROTEIN TOTAL 6.7 g/dL (6.0-8.3)
[2025-07-04 04:24] LABS: INR 1.2
[2025-07-04 04:40] LABS: ASPARTATE AMINOTRANSFERASE < 8 IU/L (<34)
[2025-07-04 04:41] LABS: CREATININE 7.8 mg/dL (0.6-1.3)
[2025-07-04 07:25] LABS: EOSINOPHILS % MANUAL 3.0 % (0.0-5.0); LYMPHOCYTES % MANUAL 5.0 % (20.0-50.0); MONOCYTES % MANUAL 7.0 % (2.0-8.0); NEUTROPHILS % MANUAL 85.0 % (45.0-75.0); PLATELET ESTIMATE NORMAL
[2025-07-04] MEDS: MORPHINE SULFATE 2 MG/ML INJ (NOT FOR IM USE) IV PRN (09:13)
[2025-07-04] MEDS: COLLAGENASE 250UNIT/GM OINT 30GM TOP SCH (14:00)
[2025-07-04] MEDS ORDERED: PROPOFOL 200MG/20ML VIAL IV ONE (15:52)
[2025-07-04] MEDS ORDERED: LIDOCAINE HCL 1% 20ML VIAL ONE (15:56)
[2025-07-05] VITALS (14 sets, daily range): BP systolic 118–132; BP diastolic 49–64; PULSE 58–67; RESP 16–18; TEMP 35.9–36.78072; O2SAT 96–100
[2025-07-05] MEDS: FOLIC ACID 1MG TABLET PO SCH (13:40)
[2025-07-05 18:23] LABS: HEMATOCRIT. 25.5 % (42.0-52.0); HEMOGLOBIN. 8.2 g/dL (14.0-18.0); MEAN PLATELET VOLUME 9.0 fl (7.4-10.4); PLATELET 408 x1000/uL (130-400); RED BLOOD CELL COUNT 3.04 mill/uL (4.7-6.1); RED CELL DISTRIBUTION WIDTH 18.0 % (11.6-14.6)
[2025-07-05 18:33] LABS: UREA NITROGEN BLOOD 33 mg/dL (9-23)
[2025-07-05 18:35] LABS: CREATININE 7.2 mg/dL (0.6-1.3); PHOSPHORUS 3.0 mg/dL (2.5-4.9)
[2025-07-05 22:40] LABS: EOSINOPHILS % MANUAL 1.0 % (0.0-5.0); LYMPHOCYTES % MANUAL 8.0 % (20.0-50.0); MONOCYTES % MANUAL 7.0 % (2.0-8.0); NEUTROPHILS % MANUAL 84.0 % (45.0-75.0); PLATELET ESTIMATE SLIGHTLY INCREASED
[2025-07-06] VITALS: BP 109/48; PULSE 67; RESP 18; TEMP 36.6; O2SAT 98
[2025-07-06 04:00] VITALS: BP 132/64; PULSE 69; RESP 18; TEMP 36.7; O2SAT 98
[2025-07-06 08:00] VITALS: BP 137/58; PULSE 77; RESP 18; TEMP 36.4; O2SAT 98
[2025-07-06 12:00] VITALS: BP 121/56; PULSE 70; RESP 18; TEMP 36.5; O2SAT 98
[2025-07-06 15:58] VITALS: BP 121/48; PULSE 71; RESP 18; TEMP 98.1
== END 2025-07-06 19:39 | DRG 252 ==
LOC: ER 15:25 → 4WST 17:51 → EDBEDREQ 17:53 → EDBEDREQTM 17:53 → ENRESERV 19:12 → 7WST 06-25 17:56 → 7EST 07-01 00:35
PROVIDERS: ADMIT Internal Medicine; ATTEND Internal Medicine
PROC: 0JBQ0ZZ Excision of Right Foot Subcutaneous Tissue and Fascia, Open Approach (ICD-10-PCS; 2025-06-23)
PROC: 0JBR0ZZ Excision of Left Foot Subcutaneous Tissue and Fascia, Open Approach (ICD-10-PCS; 2025-06-23)
PROC: 30233N1 Transfusion of Nonautologous Red Blood Cells into Peripheral Vein, Percutaneous Approach (ICD-10-PCS; 2025-06-23)
PROC: 5A1D70Z Performance of Urinary Filtration, Intermittent, Less than 6 Hours Per Day (ICD-10-PCS; 2025-06-23)
PROC: 041 Lower Arteries, Bypass (ICD-10-PCS; principal; 2025-06-24)
PROC: 041 Lower Arteries, Bypass (ICD-10-PCS; 2025-06-24)
PROC: 5A1D70Z Performance of Urinary Filtration, Intermittent, Less than 6 Hours Per Day (ICD-10-PCS; 2025-06-25)
PROC: 0YJ5XZZ Inspection of Right Inguinal Region, External Approach (ICD-10-PCS; 2025-06-25)
PROC: 5A1D70Z Performance of Urinary Filtration, Intermittent, Less than 6 Hours Per Day (ICD-10-PCS; 2025-06-28)
PROC: 5A1D70Z Performance of Urinary Filtration, Intermittent, Less than 6 Hours Per Day (ICD-10-PCS; 2025-06-30)
PROC: 5A1D70Z Performance of Urinary Filtration, Intermittent, Less than 6 Hours Per Day (ICD-10-PCS; 2025-07-02)
PROC: 0DB78ZX Excision of Stomach, Pylorus, Via Natural or Artificial Opening Endoscopic, Diagnostic (ICD-10-PCS; 2025-07-04)
PROC: 5A1D70Z Performance of Urinary Filtration, Intermittent, Less than 6 Hours Per Day (ICD-10-PCS; 2025-07-05)
DX: E11.52 Type 2 diabetes mellitus with diabetic peripheral angiopathy with gangrene (principal); K29.71 Gastritis, unspecified, with bleeding; N18.6 End stage renal disease; E44.0 Moderate protein-calorie malnutrition; I12.0 Hypertensive chronic kidney disease with stage 5 chronic kidney disease or end stage renal disease; B96.5 Pseudomonas (aeruginosa) (mallei) (pseudomallei) as the cause of diseases classified elsewhere; B95.2 Enterococcus as the cause of diseases classified elsewhere; D63.1 Anemia in chronic kidney disease; M86.8X7 Other osteomyelitis, ankle and foot; Z99.2 Dependence on renal dialysis; L89.619 Pressure ulcer of right heel, unspecified stage; L89.629 Pressure ulcer of left heel, unspecified stage; E11.621 Type 2 diabetes mellitus with foot ulcer; D50.0 Iron deficiency anemia secondary to blood loss (chronic); L76.22 Postprocedural hemorrhage of skin and subcutaneous tissue following other procedure; L76.32 Postprocedural hematoma of skin and subcutaneous tissue following other procedure; Z68.1 Body mass index [BMI] 19.9 or less, adult; E11.22 Type 2 diabetes mellitus with diabetic chronic kidney disease; E11.69 Type 2 diabetes mellitus with other specified complication; Y83.2 Surgical operation with anastomosis, bypass or graft as the cause of abnormal reaction of the patient, or of later complication, without mention of misadventure at the time of the procedure; Y92.238 Other place in hospital as the place of occurrence of the external cause; Y83.8 Other surgical procedures as the cause of abnormal reaction of the patient, or of later complication, without mention of misadventure at the time of the procedure; E53.8 Deficiency of other specified B group vitamins; Z79.4 Long term (current) use of insulin; Z79.82 Long term (current) use of aspirin; Z79.899 Other long term (current) drug therapy; Z79.84 Long term (current) use of oral hypoglycemic drugs
CPT/HCPCS: 36415; 73630; 73650; 73721; 80048; 80053; 80076; 80202; 82270; 82550; 82607; 82728; 82746; 82962; 83540; 83550; 83735; 84100; 84145; 85014; 85018; 85025; 85027; 85044; 86705; 86709; 86850; 86900; 86920; 87070; 87077; 87186; 87340; 88304; 88305; 88311; 90935; 93005; 93922; 93970; 96365; 97162; 97166; 97530; 99285; A4606; A6449; J0665; J0690; J0696; J1100; J1171; J1644; J1815; J2003; J2270; J2371; J2405; J2440; J2470; J2543; J2704; J2765; J3010; J3373; J3490; P9016; P9041; P9047; J0131